=== PATIENT | male | born 1970 | race Caucasian/White ===

== ENCOUNTER → 2016-07-03 | Outpatient (CLI) | payer BC | END | disposition home or self-care (01) | LOC: C.RDSM 08:31 | PROVIDERS: ATTEND Family Medicine | DX: M79.671 Pain in right foot (principal); M79.672 Pain in left foot ==

== ENCOUNTER → 2016-07-08 | Day surgery (SDC) | payer BC ==
[2016-06-18 11:33] VITALS: Ht 175.3 cm; Wt 81.8 kg
[~2016-07-08] VITALS: Ht 175.3 cm; Wt 81.8 kg
== END | disposition home or self-care (01) ==
LOC: C.PAT 13:44 → EDSTATUS 14:45
PROVIDERS: ATTEND Physical Medicine & Rehabilitation
DX: M54.16 Radiculopathy, lumbar region (principal)